=== PATIENT | female | born 1940 | race Caucasian/White ===

== ENCOUNTER 2019-10-15 10:08 | Emergency (ER) | payer MEDICARE, OTHER ==
[~2019-10-15] VITALS: Ht 157.5 cm; Wt 81.8 kg
[2019-10-15 10:28] VITALS: BP 144/67
== END 2019-10-15 11:18 | disposition home or self-care (01) ==
LOC: ER 10:09
DX: S06.0X0A Concussion without loss of consciousness, initial encounter (principal); S00.83XA Contusion of other part of head, initial encounter; W18.39XA Other fall on same level, initial encounter; Y93.89 Activity, other specified; Y92.89 Other specified places as the place of occurrence of the external cause; Y99.8 Other external cause status
CPT/HCPCS: 70450; 93005; 99284